=== PATIENT | female | born 1995 | race Two or more races ===

== ENCOUNTER 2020-12-09 12:35 | Inpatient (IN) | payer OTHER, SELFPAY ==
[2020-12-09 12:58] VITALS: BP 141/87; PULSE 120; RESP 20; TEMP 36.9; O2SAT 98; BMI 68.7
--- NOTE | 2020-12-09 13:31 | ED_ITS ---
HPI - Nausea/Vomiting/Diarrhea General Chief complaint: Nausea/Vomiting/Diarrhea Stated complaint: N/V,COUGH Time Seen by Provider: 12/09/20 13:31 History of Present Illness HPI Narrative: Patient complains of nausea and vomiting which started several days ago and is getting worse, she also feels weak No fever no chills no chest pain no shortness of breath no abdominal pain no diarrhea Patient is diabetic and has had DKA in the past Related Data Allergies Allergy/AdvReac Type Severity Reaction Status Date / Time bupropion [From Wellbutrin] Allergy Abdominal Verified 12/09/20 13:05 Pain [place] And Derivatives Allergy Itching Verified 12/09/20 13:05 lactose Allergy Nausea Verified 12/09/20 13:05 Review of Systems Review of Systems: Positive for nausea vomiting and weakness negatives are no fever no chills no chest pain no shortness of breath no abdominal pain no diarrhea no dysuria no burning with urination no flank pain no rash no confusion PMFSH Past Medical History PMFSH Narrative: Positive for diabetes and psychiatric disease Source: nursing notes reviewed Medical History (Updated 12/09/20 @ 13:03 by Musa Sandra) ADHD Anxiety Asthma Bipolar disorder Depression Diabetes mellitus type 1 PTSD (post-traumatic stress disorder) Social History Social History Alcohol intake: current Alcohol intake frequency: holidays/special occasions only Smoking Status: Never smoker Use of substances other than those prescribed or required for medical reasons: Yes Substance Use Type: Marijuana Substance Use Frequency: Daily Last Used Substance: Just Prior to Admission Advance Directives: Yes Advance Directives Information Provided: Yes Advance Directives on File: No Physical Exam Vital Signs: Vital Signs: Last Vital Signs Temp 98.1 F 12/09/20 19:11 Pulse 100 12/09/20 19:11 Resp 18 12/09/20 19:11 BP 138/95 H 12/09/20 19:11 Pulse Ox 100 12/09/20 19:11 Body Mass Index 68.7 General appearance is uncomfortable no acute distress and O x3 cooperative The head is normocephalic atraumatic The pharynx mucous membranes are dry Eyes anicteric no pallor The neck is supple The chest is clear to auscultation bilaterally with full symmetric breath sounds Heart rate and rhythm regular no murmur Abdomen is soft and nontender with no rebound no guarding Extremities no edema Skin no rash Neuro cranial nerves 2-12 intact as tested, motor is 5 /5 x 4, cerebellar exam was normal, verbal interaction was normal Course Course Course Narrative: Patient continued feeling nauseous and vomiting despite 2 doses of Zofran, she received 2 L of fluid and was given Reglan with good results and felt much better and was no longer vomiting and was easily able to tolerate p.o. and drink lots of fluids Labs showed possible DKA with bicarb 11, anion gap 25 and glucose 223 These labs were repeated and were worse with repeat sodium of 133 repeat bicarb of 6 repeat anion gap now 29 and glucose 287 and acetone increased from small to moderate Case was signed out to pa reschler at 930 pm to re-evaluate patient pending administration of another L of D5 NS, venous blood gas pending and she will re- evaluate and dispo patient pending treatment MDM - Nausea/Vomiting/Diarrhea Lab Data Attestation: I reviewed the patient's lab results. Result diagrams: 12/09/20 13:49 12/09/20 20:14 Labs: Lab Results 12/09/20 12/09/20 12/09/20 Range/Units 13:49 16:33 16:33 WBC 9.3 (4.8-10.8) X10*3/uL RBC 5.26 (4.20-5.50) X10*6/uL Hgb 16.3 H (12.0-16.0) g/dl Hct 49.1 H (37-47) % MCV 93.3 (80-98) fL MCH 31.0 (27.0-33.0) pg MCHC 33.2 (31.0-35.0) g/dl RDW 12.1 (11.0-16.0) % Plt Count 295 (160-400) X10*3/uL MPV 10.2 (9.4-12.3) fL Immature Gran % (Auto) 0.2 (0.0-0.4) % Neut % (Auto) 86.2 H (45-73) % Lymph % (Auto) 9.2 L (20-40) % [place] % (Auto) 4.0 (2-11) % Eos % (Auto) 0.0 (0-4) % Baso % (Auto) 0.4 (0-2) % Lymph # (Auto) 0.9 L (1.2-4.9) X10*3/uL [place] # (Auto) 0.4 (0.1-1.2) X10*3/uL Eos # (Auto) 0.0 (0.0-0.4) X10*3/uL Baso # (Auto) 0.0 (0.0-0.2) X10*3/uL Abs Immat Gran (auto) 0.02 (0.00-0.03) X10*3/uL Absolute Neuts (auto) 8.0 (2.0-8.3) X10*3/uL Absolute Nucleated RBC 0.000 (0.0-0.012) X10*3/uL Nucleated RBC % (auto) 0.0 (0.0-0.2) /100WBC Sodium 137 (135-145) mmol/L Potassium 4.2 (3.3-5.1) mmol/L Chloride 105 (96-108) mmol/L Carbon Dioxide 11 L (22-29) mmol/L Anion Gap 25 H (12-20) BUN 12 (9-16) mg/dL Creatinine 1.10 (0.5-1.4) mg/dL Estim Creat Clear Calc 148.5 Estimated GFR > 60 Random Glucose 223 H (60-115) mg/dL Calcium 9.0 9.2 (8.4-10.2) mg/dL Phosphorus 3.1 (2.7-4.5) mg/dL Magnesium 2.1 (1.6-2.6) mg/dL Total Bilirubin 0.3 0.3 (0.0-1.0) mg/dL Direct Bilirubin < 0.2 (0.0-0.5) mg/dL AST 32 H 33 H (5-31) U/L ALT 42 H 40 H (0-31) U/L Alkaline Phosphatase 84 83 (39-117) U/L Total Protein 8.0 7.9 (6.5-8.0) g/dL Albumin 4.8 4.7 (3.5-5.0) g/dL Lipase Beta HCG, Quant mIU/mL Urine Color Urine Appearance Urine pH (5.0-8.0) Ur Specific [place] (1.005-1.025) Urine Protein (NEG-TRACE) MG/DL Urine Glucose (UA) (NEG) MG/DL Urine Ketones (NEG) MG/DL Urine Blood (NEG) Urine Nitrite (NEG) Ur Leukocyte Esterase (NEG) Urine RBC (0) /HPF Urine WBC (0-4) /HPF Ur Squamous Epith Cells /LPF Urine Bacteria /LPF Urine Test (NEGATIVE) Acetone, Qual Small H (Negative) 12/09/20 12/09/20 12/09/20 Range/Units 16:33 16:33 16:33 WBC (4.8-10.8) X10*3/uL RBC (4.20-5.50) X10*6/uL Hgb (12.0-16.0) g/dl Hct (37-47) % MCV (80-98) fL MCH (27.0-33.0) pg MCHC (31.0-35.0) g/dl RDW (11.0-16.0) % Plt Count (160-400) X10*3/uL MPV (9.4-12.3) fL Immature Gran % (Auto) (0.0-0.4) % Neut % (Auto) (45-73) % Lymph % (Auto) (20-40) % [place] % (Auto) (2-11) % Eos % (Auto) (0-4) % Baso % (Auto) (0-2) % Lymph # (Auto) (1.2-4.9) X10*3/uL [place] # (Auto) (0.1-1.2) X10*3/uL Eos # (Auto) (0.0-0.4) X10*3/uL Baso # (Auto) (0.0-0.2) X10*3/uL Abs Immat Gran (auto) (0.00-0.03) X10*3/uL Absolute Neuts (auto) (2.0-8.3) X10*3/uL Absolute Nucleated RBC (0.0-0.012) X10*3/uL Nucleated RBC % (auto) (0.0-0.2) /100WBC Sodium Cancelled (135-145) mmol/L Potassium Cancelled (3.3-5.1) mmol/L Chloride Cancelled (96-108) mmol/L Carbon Dioxide Cancelled (22-29) mmol/L Anion Gap Cancelled (12-20) BUN Cancelled (9-16) mg/dL Creatinine Cancelled (0.5-1.4) mg/dL Estim Creat Clear Calc Cancelled Estimated GFR Cancelled Random Glucose Cancelled (60-115) mg/dL Calcium Cancelled (8.4-10.2) mg/dL Phosphorus (2.7-4.5) mg/dL Magnesium (1.6-2.6) mg/dL Total Bilirubin Cancelled (0.0-1.0) mg/dL Direct Bilirubin Cancelled (0.0-0.5) mg/dL AST Cancelled (5-31) U/L ALT Cancelled (0-31) U/L Alkaline Phosphatase Cancelled (39-117) U/L Total Protein Cancelled (6.5-8.0) g/dL Albumin Cancelled (3.5-5.0) g/dL Lipase Cancelled Cancelled Beta HCG, Quant < 2 mIU/mL Urine Color Urine Appearance Urine pH (5.0-8.0) Ur Specific [place] (1.005-1.025) Urine Protein (NEG-TRACE) MG/DL Urine Glucose (UA) (NEG) MG/DL Urine Ketones (NEG) MG/DL Urine Blood (NEG) Urine Nitrite (NEG) Ur Leukocyte Esterase (NEG) Urine RBC (0) /HPF Urine WBC (0-4) /HPF Ur Squamous Epith Cells /LPF Urine Bacteria /LPF Urine Test (NEGATIVE) Acetone, Qual Cancelled (Negative) 12/09/20 12/09/20 12/09/20 Range/Units 19:17 19:17 20:14 WBC (4.8-10.8) X10*3/uL RBC (4.20-5.50) X10*6/uL Hgb (12.0-16.0) g/dl Hct (37-47) % MCV (80-98) fL MCH (27.0-33.0) pg MCHC (31.0-35.0) g/dl RDW (11.0-16.0) % Plt Count (160-400) X10*3/uL MPV (9.4-12.3) fL Immature Gran % (Auto) (0.0-0.4) % Neut % (Auto) (45-73) % Lymph % (Auto) (20-40) % [place] % (Auto) (2-11) % Eos % (Auto) (0-4) % Baso % (Auto) (0-2) % Lymph # (Auto) (1.2-4.9) X10*3/uL [place] # (Auto) (0.1-1.2) X10*3/uL Eos # (Auto) (0.0-0.4) X10*3/uL Baso # (Auto) (0.0-0.2) X10*3/uL Abs Immat Gran (auto) (0.00-0.03) X10*3/uL Absolute Neuts (auto) (2.0-8.3) X10*3/uL Absolute Nucleated RBC (0.0-0.012) X10*3/uL Nucleated RBC % (auto) (0.0-0.2) /100WBC Sodium 133 L (135-145) mmol/L Potassium 4.8 (3.3-5.1) mmol/L Chloride 103 (96-108) mmol/L Carbon Dioxide 6 L* D (22-29) mmol/L Anion Gap 29 H (12-20) BUN 12 (9-16) mg/dL Creatinine 1.11 (0.5-1.4) mg/dL Estim Creat Clear Calc 147.1 Estimated GFR 60 Random Glucose 287 H (60-115) mg/dL Calcium 8.7 (8.4-10.2) mg/dL Phosphorus (2.7-4.5) mg/dL Magnesium (1.6-2.6) mg/dL Total Bilirubin (0.0-1.0) mg/dL Direct Bilirubin (0.0-0.5) mg/dL AST (5-31) U/L ALT (0-31) U/L Alkaline Phosphatase (39-117) U/L Total Protein (6.5-8.0) g/dL Albumin (3.5-5.0) g/dL Lipase Beta HCG, Quant mIU/mL Urine Color YELLOW Urine Appearance CLEAR Urine pH 5.5 (5.0-8.0) Ur Specific [place] >= 1.030 H (1.005-1.025) Urine Protein 2+ H (NEG-TRACE) MG/DL Urine Glucose (UA) 250 H (NEG) MG/DL Urine Ketones >=80 (NEG) MG/DL Urine Blood TRACE (NEG) Urine Nitrite NEG (NEG) Ur Leukocyte Esterase NEG (NEG) Urine RBC 0 (0) /HPF Urine WBC 0 (0-4) /HPF Ur Squamous Epith Cells NONE /LPF Urine Bacteria TRACE /LPF Urine Test NEGATIVE (NEGATIVE) Acetone, Qual Moderate H (Negative)
[2020-12-09] MEDS: ondansetron HCL 4 MG/2 ML VIAL IVPUSH ×2 (13:54→16:32)
[2020-12-09] MEDS: 0.9 % Sodium Chloride 1,000 ML 999 ML IVCONT ×2 (13:54→20:18)
[2020-12-09 13:55] LABS: MANUAL DIFF FLAG NO
[2020-12-09 14:02] LABS: Basophils Percent Auto 0.4 % (0-2); Hematocrit 49.1 % (37-47); Hemoglobin 16.3 g/dl (12.0-16.0); Imm Gran Abs Auto 0.02 X10*3/uL (0.00-0.03); Imm Gran Pct Auto 0.2 % (0.0-0.4); Lymphocytes Absolute Auto 0.9 X10*3/uL (1.2-4.9); Lymphocytes Percent Auto 9.2 % (20-40); Mean Corpuscular HGB Conc 33.2 g/dl (31.0-35.0); Mean Corpuscular Volume 93.3 fL (80-98); Mean Platelet Volume 10.2 fL (9.4-12.3); Monocytes Absolute Auto 0.4 X10*3/uL (0.1-1.2); Neutrophils Percent Auto 86.2 % (45-73); Platelet Count 295 X10*3/uL (160-400); Red Blood Count 5.26 X10*6/uL (4.20-5.50); Red Cell Distribution Width 12.1 % (11.0-16.0); White Blood Count 9.3 X10*3/uL (4.8-10.8)
[2020-12-09 15:31] VITALS: BP 128/61; PULSE 92; RESP 18; TEMP 37.3; O2SAT 100
[2020-12-09 16:09] VITALS: BP 142/86; PULSE 100; RESP 18; TEMP 37.2; O2SAT 99
--- NOTE | 2020-12-09 16:51 | PC.NURSE ---
pt continues to complain of nausea, given medication further per emar, repeat draw on hemolyzed specs. wctm.
[2020-12-09] MEDS: diphenhydrAMINE HCL 50 MG/ML VIAL 25 MG IVPUSH (17:15)
[2020-12-09] MEDS: Metoclopramide HCl 10 MG/2 ML VIAL IVPUSH ×2 (17:15→22:43)
--- NOTE | 2020-12-09 17:17 | PC.NURSE ---
MEDICATED FURTHER PER EMAR FOR NAUSEA. PT SEEN DRINKING FLUIDS RAPIDLY W THIS RN IN ROOM, EDUCATED ABOUT DRINKING FLUIDS QUICKLY WHEN VOMITING AND FEELING NAUSEOUS.
[2020-12-09 17:31] LABS: HCG Quantitative < 2 mIU/mL
[2020-12-09 17:39] LABS: Alanine Aminotransferase 40 U/L (0-31); Albumin Level 4.7 g/dL (3.5-5.0); Alkaline Phosphatase 83 U/L (39-117); Aspartate Amino Transferase 33 U/L (5-31); Bilirubin Direct < 0.2 mg/dL (0.0-0.5); Bilirubin Total 0.3 mg/dL (0.0-1.0); Calcium 9.2 mg/dL (8.4-10.2); Total Protein 7.9 g/dL (6.5-8.0)
[2020-12-09 17:40] LABS: Alanine Aminotransferase 42 U/L (0-31); Albumin Level 4.8 g/dL (3.5-5.0); Alkaline Phosphatase 84 U/L (39-117); Anion Gap 25 (12-20); Aspartate Amino Transferase 32 U/L (5-31); Bilirubin Total 0.3 mg/dL (0.0-1.0); Blood Urea Nitrogen 12 mg/dL (9-16); Carbon Dioxide 11 mmol/L (22-29); Chloride 105 mmol/L (96-108); Creatinine Clr Calc Pharmacy 148.5; Estimated Glomerular Filt Rate > 60; Glucose Random 223 mg/dL (60-115); Magnesium 2.1 mg/dL (1.6-2.6); Phosphorus 3.1 mg/dL (2.7-4.5); Potassium 4.2 mmol/L (3.3-5.1); Sodium 137 mmol/L (135-145)
[2020-12-09 18:05] LABS: Acetone, serum QL Small (Negative)
[2020-12-09 19:11] VITALS: BP 138/95; PULSE 100; RESP 18; TEMP 36.7; O2SAT 100
[2020-12-09 19:25] LABS: Glucose Urine UA 250 MG/DL (NEG); Leukocyte Esterase Urine NEG (NEG); Nitrite Urine NEG (NEG); PH 5.5 (5.0-8.0); Specific Gravity - Urine >= 1.030 (1.005-1.025); Urine Blood TRACE (NEG); Urine Ketones >=80 MG/DL (NEG); Urine Protein 2+ MG/DL (NEG-TRACE)
[2020-12-09 19:27] LABS: Appearance Urine CLEAR; Color Urine YELLOW
[2020-12-09 19:28] LABS: UPreg QC Valid YES; Urine Pregnancy NEGATIVE (NEGATIVE)
[2020-12-09 19:32] LABS: Bacteria Urine TRACE /LPF; RBC Urine 0 /HPF (0); WBC Urine 0 /HPF (0-4)
[2020-12-09 20:45] LABS: Acetone, serum QL Moderate (Negative)
[2020-12-09 21:05] LABS: Anion Gap 29 (12-20); Blood Urea Nitrogen 12 mg/dL (9-16); Calcium 8.7 mg/dL (8.4-10.2); Carbon Dioxide 6 mmol/L (22-29); Chloride 103 mmol/L (96-108); Creatinine Clr Calc Pharmacy 147.1; Estimated Glomerular Filt Rate 60; Glucose Random 287 mg/dL (60-115); Potassium 4.8 mmol/L (3.3-5.1); Sodium 133 mmol/L (135-145)
[2020-12-09] MEDS: Dextrose 5 % and 0.9 % NaCl 1,000 ML 999 ML IVCONT (21:33)
[2020-12-09 22:14] LABS: Lactic Acid 0.8 mmol/L (0.5-2.0)
[2020-12-09 22:14] LABS: Glucose, Whole Blood 284 mg/dL (60-115)
[2020-12-09] MEDS: Lactated Ringers 1,000 ML 999 ML IVCONT (22:48)
[2020-12-09 23:01] LABS: Base Excess VBG -19.2 mmol/L; HCO3 VBG 4 mmol/L; PCO2 VBG 10 mmHg; PO2 VBG 234 mmHg; pH VBG 7.23 (7.32-7.43)
[2020-12-09] MEDS: Insulin Regular, Human 100 UNIT/ML 3 ML VIAL IVPUSH (23:22)
[2020-12-09 23:47] LABS: Glucose, Whole Blood 234 mg/dL (60-115)
[2020-12-09 23:54] LABS: Anion Gap 26 (12-20); Blood Urea Nitrogen 10 mg/dL (9-16); Calcium 8.3 mg/dL (8.4-10.2); Carbon Dioxide < 5 mmol/L (22-29); Chloride 107 mmol/L (96-108); Creatinine Clr Calc Pharmacy 152.7; Estimated Glomerular Filt Rate > 60; Glucose Random 296 mg/dL (60-115); Potassium 4.9 mmol/L (3.3-5.1); Sodium 133 mmol/L (135-145)
--- NOTE | 2020-12-09 23:56 | PM.CCHP ---
History of Present Illness Date of Service: 12/09/20 Chief Complaint: nausea & vomiting Patient is a 25-year-old female with a past medical history type 1 diabetes, ADHD, bipolar with depression, PTSD and asthma who presented to the ER earlier today with complaints of nausea and vomiting for several days which is getting worse. Patient denies a fever chills chest pain shortness of breath abdominal pain and diarrhea. Patient states she took her 55 units of Lantus this morning but states she did not take it yesterday morning. Patient also admits to using marijuana daily, last use just prior to arrival to the ED. patient was given 2 doses of Zofran IV fluids and Reglan which helped her nausea. Labs showed DKA with bicarb of 11, anion gap of 25, small acetone and glucose of 223. Labs were repeated approximately 3 hours later, showing worsening acidosis with a bicarb of 6, anion gap of 29, acetone moderate, glucose stable in the 280s. VBG and lactic acid were then ordered; vbg 7.23/10/234/4/99/-19.2, lactic acid 0.8. Salicylates negative, acetaminophen negative, etoh negative. Upon my exam, patient disclosed she went to [facility] earlier this week for ?the same issue? but left AMA because she was sick of getting poked . Patient seemed a little slow with her speech, that coupled with her significant psych history, I queried her about SI or attempt today or history of SI or attempts in the past. She denies any suicide ideations or attempts in the past or current. She states she gets her Abilify injection every 3 months and her last injection was 2 days ago. 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 Patient will be admitted to the ICU for monitoring and management. Review of Systems Review of Systems: Yes all other systems are reviewed and are negative PMFSH Past Medical History Medical History ADHD Anxiety Asthma Bipolar disorder Depression Diabetes mellitus type 1 PTSD (post-traumatic stress disorder) Social History Social History Alcohol intake: current Alcohol intake frequency: holidays/special occasions only Smoking Status: Never smoker Use of substances other than those prescribed or required for medical reasons: Yes Substance Use Type: Marijuana Substance Use Frequency: Daily Last Used Substance: Just Prior to Admission Advance Directives: Yes Advance Directives Information Provided: Yes Advance Directives on File: No Meds Allergies Allergy/AdvReac Type Severity Reaction Status Date / Time bupropion [From Wellbutrin] Allergy Abdominal Verified 12/09/20 13:05 Pain [place] And Derivatives Allergy Itching Verified 12/09/20 13:05 lactose Allergy Nausea Verified 12/09/20 13:05 Active Medications: Current Medications Generic Name Dose Route Start Last Admin Trade Name Freq PRN Reason Stop Dose Admin Insulin Human Regular 100 unit in 100 mls @ 0 mls/hr 12/09/20 23:45 Myxredlin IVCONT .Q0M [facility] Protocol Per Protocol Dextrose/Sodium Chloride 1,000 mls @ 150 mls/hr 12/09/20 23:45 D5ns IVCONT .[id number] [facility] Pharmacy Consult 1 each 12/09/20 23:52 Consult Rx Perform Med Rec MISCELLANE ONCE PRN Consult order Sodium Chloride 3 ml 12/10/20 00:00 0.9 % Sodium Chloride Flush 3 Ml Syringe IVFLUSH QSHIFT [facility] Home Medications Medication Instructions Recorded Confirmed Last Taken Type albuterol sulfate [ProAir HFA] 2 puff PO Q4H PRN 12/10/20 12/10/20 12/09/20 History aripiprazole lauroxil [Arist[place]] 2.4 ml IM Q4W 12/10/20 12/10/20 12/09/20 History insulin lispro [Admelog SoloStar 12 unit SUBCUT QID 12/10/20 12/10/20 12/09/20 History U-100 Insulin] sertraline 1 tab PO DAILY 12/10/20 12/10/20 12/09/20 History sertraline 1 tab PO DAILY 12/10/20 12/10/20 12/09/20 History Physical Exam Vital Signs: Vital Signs: Last Vital Signs Temp 98.1 F 12/09/20 19:11 Pulse 100 12/09/20 19:11 Resp 18 12/09/20 19:11 BP 138/95 H 12/09/20 19:11 Pulse Ox 100 12/09/20 19:11 Body Mass Index 68.7 Const: General: cooperative, healthy appearing, comfortable, no acute distress and well developed Nutritional Appearance: overweight Orientation/consciousness: patient oriented x3 HENMT: Head: Yes normal to inspection, Yes No palpable skull fracture present, Yes normocephalic and Yes atraumatic Ears: hearing grossly normal bilaterally General nose exam: Normal external nose present Face and sinus: Yes normal facial exam Eyes: General: appearance normal, both eyes and all related structures Neck: Neck: Yes normal visual inspection, Yes full ROM and Yes supple Resp: Effort & Inspection: normal respiratory effort and able to speak in complete sentences Cardio: Rate: regular rate Rhythm: regular rhythm Neuro: General: patient oriented x3 Extrem: General: Yes normal to inspection, Yes full ROM and Yes no pedal edema Psych: Speech and movement: Clear speech present (slightly slowed) Affect: Blunted affect present Attitude: cooperative Thought process: Normal thought process present Thought content: Normal thought content present, suicidality and no homicidality Insight: Fair insight present (Psych) Judgement: Fair judgement present (Psych) Results Labs CBC and Chem 7: 12/09/20 13:49 12/09/20 22:53 Labs: Laboratory Results - last 24 hr 12/09/20 12/09/20 12/09/20 13:49 16:33 16:33 MCV 93.3 MCH 31.0 MCHC 33.2 RDW 12.1 Plt Count 295 MPV 10.2 Immature Gran % (Auto) 0.2 Neut % (Auto) 86.2 H Lymph % (Auto) 9.2 L [place] % (Auto) 4.0 Eos % (Auto) 0.0 Baso % (Auto) 0.4 Lymph # (Auto) 0.9 L [place] # (Auto) 0.4 Eos # (Auto) 0.0 Baso # (Auto) 0.0 Abs Immat Gran (auto) 0.02 Absolute Neuts (auto) 8.0 Absolute Nucleated RBC 0.000 Nucleated RBC % (auto) 0.0 VBG pH VBG pCO2 VBG pO2 VBG HCO3 VBG O2 Saturation VBG Base Excess Anion Gap 25 H Estim Creat Clear Calc 148.5 Estimated GFR > 60 POC Glucose Random Glucose 223 H Lactic Acid Calcium 9.0 9.2 Phosphorus 3.1 Magnesium 2.1 Total Bilirubin 0.3 0.3 Direct Bilirubin < 0.2 AST 32 H 33 H ALT 42 H 40 H Alkaline Phosphatase 84 83 Total Protein 8.0 7.9 Albumin 4.8 4.7 Lipase Beta HCG, Quant Urine Color Urine Appearance Urine pH Ur Specific [place] Urine Protein Urine Glucose (UA) Urine Ketones Urine Blood Urine Nitrite Ur Leukocyte Esterase Urine RBC Urine WBC Ur Squamous Epith Cells Urine Bacteria Urine Test Acetone, Qual Small H 12/09/20 12/09/20 12/09/20 16:33 16:33 16:33 MCV MCH MCHC RDW Plt Count MPV Immature Gran % (Auto) Neut % (Auto) Lymph % (Auto) [place] % (Auto) Eos % (Auto) Baso % (Auto) Lymph # (Auto) [place] # (Auto) Eos # (Auto) Baso # (Auto) Abs Immat Gran (auto) Absolute Neuts (auto) Absolute Nucleated RBC Nucleated RBC % (auto) VBG pH VBG pCO2 VBG pO2 VBG HCO3 VBG O2 Saturation VBG Base Excess Anion Gap Cancelled Estim Creat Clear Calc Cancelled Estimated GFR Cancelled POC Glucose Random Glucose Cancelled Lactic Acid Calcium Cancelled Phosphorus Magnesium Total Bilirubin Cancelled Direct Bilirubin Cancelled AST Cancelled ALT Cancelled Alkaline Phosphatase Cancelled Total Protein Cancelled Albumin Cancelled Lipase Cancelled Cancelled Beta HCG, Quant < 2 Urine Color Urine Appearance Urine pH Ur Specific [place] Urine Protein Urine Glucose (UA) Urine Ketones Urine Blood Urine Nitrite Ur Leukocyte Esterase Urine RBC Urine WBC Ur Squamous Epith Cells Urine Bacteria Urine Test Acetone, Qual Cancelled 12/09/20 12/09/20 12/09/20 19:17 19:17 20:14 MCV MCH MCHC RDW Plt Count MPV Immature Gran % (Auto) Neut % (Auto) Lymph % (Auto) [place] % (Auto) Eos % (Auto) Baso % (Auto) Lymph # (Auto) [place] # (Auto) Eos # (Auto) Baso # (Auto) Abs Immat Gran (auto) Absolute Neuts (auto) Absolute Nucleated RBC Nucleated RBC % (auto) VBG pH VBG pCO2 VBG pO2 VBG HCO3 VBG O2 Saturation VBG Base Excess Anion Gap 29 H Estim Creat Clear Calc 147.1 Estimated GFR 60 POC Glucose Random Glucose 287 H Lactic Acid Calcium 8.7 Phosphorus Magnesium Total Bilirubin Direct Bilirubin AST ALT Alkaline Phosphatase Total Protein Albumin Lipase Beta HCG, Quant Urine Color YELLOW Urine Appearance CLEAR Urine pH 5.5 Ur Specific [place] >= 1.030 H Urine Protein 2+ H Urine Glucose (UA) 250 H Urine Ketones >=80 Urine Blood TRACE Urine Nitrite NEG Ur Leukocyte Esterase NEG Urine RBC 0 Urine WBC 0 Ur Squamous Epith Cells NONE Urine Bacteria TRACE Urine Test NEGATIVE Acetone, Qual Moderate H 12/09/20 12/09/20 12/09/20 21:50 22:09 22:53 MCV MCH MCHC RDW Plt Count MPV Immature Gran % (Auto) Neut % (Auto) Lymph % (Auto) [place] % (Auto) Eos % (Auto) Baso % (Auto) Lymph # (Auto) [place] # (Auto) Eos # (Auto) Baso # (Auto) Abs Immat Gran (auto) Absolute Neuts (auto) Absolute Nucleated RBC Nucleated RBC % (auto) VBG pH 7.23 L VBG pCO2 10 VBG pO2 234 VBG HCO3 4 VBG O2 Saturation 99.0 VBG Base Excess -19.2 Anion Gap Estim Creat Clear Calc Estimated GFR POC Glucose 284 H Random Glucose Lactic Acid 0.8 Calcium Phosphorus Magnesium Total Bilirubin Direct Bilirubin AST ALT Alkaline Phosphatase Total Protein Albumin Lipase Beta HCG, Quant Urine Color Urine Appearance Urine pH Ur Specific [place] Urine Protein Urine Glucose (UA) Urine Ketones Urine Blood Urine Nitrite Ur Leukocyte Esterase Urine RBC Urine WBC Ur Squamous Epith Cells Urine Bacteria Urine Test Acetone, Qual 12/09/20 12/09/20 22:53 23:41 MCV MCH MCHC RDW Plt Count MPV Immature Gran % (Auto) Neut % (Auto) Lymph % (Auto) [place] % (Auto) Eos % (Auto) Baso % (Auto) Lymph # (Auto) [place] # (Auto) Eos # (Auto) Baso # (Auto) Abs Immat Gran (auto) Absolute Neuts (auto) Absolute Nucleated RBC Nucleated RBC % (auto) VBG pH VBG pCO2 VBG pO2 VBG HCO3 VBG O2 Saturation VBG Base Excess Anion Gap 26 H Estim Creat Clear Calc 152.7 Estimated GFR > 60 POC Glucose 234 H Random Glucose 296 H Lactic Acid Calcium 8.3 L Phosphorus Magnesium Total Bilirubin Direct Bilirubin AST ALT Alkaline Phosphatase Total Protein Albumin Lipase Beta HCG, Quant Urine Color Urine Appearance Urine pH Ur Specific [place] Urine Protein Urine Glucose (UA) Urine Ketones Urine Blood Urine Nitrite Ur Leukocyte Esterase Urine RBC Urine WBC Ur Squamous Epith Cells Urine Bacteria Urine Test Acetone, Qual Assessment and Plan (1) DKA (diabetic ketoacidoses): Qualifiers: Diabetes mellitus complication detail: without coma Diabetes mellitus type: type 1 Qualified Code(s): E10.10 - Type 1 diabetes mellitus with ketoacidosis without coma Status: Acute Starting patient on insulin drip, D5 NS drip, will monitor POC Q1H, monitor metabolic panel Q2H.
[2020-12-10] VITALS (23 sets, daily range): BP systolic 107–143; BP diastolic 60–83; PULSE 79–110; RESP 10–26; TEMP 36.7–37.4; O2SAT 95–99; BMI 28.8; BMI 29.0
[2020-12-10 00:21] LABS: Glucose, Whole Blood 214 mg/dL (60-115)
[2020-12-10] MEDS: Dextrose 5 % and 0.9 % NaCl 1,000 ML 150 ML IVCONT (00:26)
[2020-12-10] MEDS: Insulin Regular/NS 100 UNIT/100 ML PLAST..BAG IVCONT (00:30)
--- NOTE | 2020-12-10 00:31 | PC.NURSE ---
insulin drip started @ 3u/h @ 0031 w/ d5ns @ 150ml/h as well per ICU PA pt given sandwich & diet nicolette
[2020-12-10 00:34] LABS: COVID-19 Test Negative (Negative); IDNOW Serial# 9DD0AD1C
[2020-12-10 00:34] LABS: Ethanol < 10 mg/dL
[2020-12-10 01:02] LABS: Acetaminophen LAB < 1 mcg/mL (<30); Salicylate < 5.0 mg/dL (15-30)
[2020-12-10 01:11] LABS: Glucose, Whole Blood 226 mg/dL (60-115)
[2020-12-10 01:25] LABS: Base Excess VBG -15.3 mmol/L; HCO3 VBG 9 mmol/L; PCO2 VBG 21 mmHg; PO2 VBG 56 mmHg; pH VBG 7.25 (7.32-7.43)
[2020-12-10 01:48] LABS: Anion Gap 20 (12-20); Blood Urea Nitrogen 9 mg/dL (9-16); Calcium 8.3 mg/dL (8.4-10.2); Carbon Dioxide 11 mmol/L (22-29); Chloride 107 mmol/L (96-108); Estimated Glomerular Filt Rate > 60; Glucose Random 254 mg/dL (60-115); Potassium 3.9 mmol/L (3.3-5.1); Sodium 134 mmol/L (135-145)
[2020-12-10] MEDS: Acetaminophen 325 MG TABLET 650 MG PO ×2 (01:53→08:05)
[2020-12-10 02:01] LABS: Glucose, Whole Blood 235 mg/dL (60-115)
[2020-12-10] MEDS: KCl 20 mEq in 5% Dex/0.45% Sod 20 MEQ/1,000 ML IV.SOLN 150 MEQ IVCONT (02:30)
[2020-12-10 03:08] LABS: Glucose, Whole Blood 213 mg/dL (60-115)
[2020-12-10 04:10] LABS: Glucose, Whole Blood 219 mg/dL (60-115)
[2020-12-10 04:26] LABS: MANUAL DIFF FLAG NO
[2020-12-10 04:36] LABS: Basophils Percent Auto 0.4 % (0-2); Hematocrit 37.8 % (37-47); Hemoglobin 12.8 g/dl (12.0-16.0); Imm Gran Abs Auto 0.01 X10*3/uL (0.00-0.03); Imm Gran Pct Auto 0.1 % (0.0-0.4); Lymphocytes Percent Auto 25.4 % (20-40); Mean Corpuscular HGB Conc 33.9 g/dl (31.0-35.0); Mean Corpuscular Hemoglobin 31.1 pg (27.0-33.0); Mean Corpuscular Volume 91.7 fL (80-98); Mean Platelet Volume 10.4 fL (9.4-12.3); Monocytes Absolute Auto 0.8 X10*3/uL (0.1-1.2); Neutrophils Absolute Auto 4.9 X10*3/uL (2.0-8.3); Neutrophils Percent Auto 64.1 % (45-73); Platelet Count 238 X10*3/uL (160-400); Red Blood Count 4.12 X10*6/uL (4.20-5.50); White Blood Count 7.7 X10*3/uL (4.8-10.8)
[2020-12-10 04:55] LABS: Anion Gap 13 (12-20); Blood Urea Nitrogen 8 mg/dL (9-16); Carbon Dioxide 14 mmol/L (22-29); Chloride 110 mmol/L (96-108); Creatinine Clr Calc Pharmacy 114.8; Estimated Glomerular Filt Rate > 60; Glucose Random 236 mg/dL (60-115); Magnesium 1.9 mg/dL (1.6-2.6); Phosphorus 2.4 mg/dL (2.7-4.5); Potassium 3.8 mmol/L (3.3-5.1); Sodium 133 mmol/L (135-145)
[2020-12-10 05:02] LABS: Glucose, Whole Blood 201 mg/dL (60-115)
[2020-12-10 06:00] LABS: Glucose, Whole Blood 196 mg/dL (60-115)
[2020-12-10 07:07] LABS: Glucose, Whole Blood 206 mg/dL (60-115)
[2020-12-10 07:35] LABS: MANUAL DIFF FLAG NO
[2020-12-10 07:41] LABS: Basophils Percent Auto 0.3 % (0-2); Eosinophils Percent Auto 0.3 % (0-4); Hemoglobin 13.2 g/dl (12.0-16.0); Imm Gran Abs Auto 0.02 X10*3/uL (0.00-0.03); Imm Gran Pct Auto 0.3 % (0.0-0.4); Lymphocytes Absolute Auto 1.8 X10*3/uL (1.2-4.9); Lymphocytes Percent Auto 27.6 % (20-40); Mean Corpuscular HGB Conc 33.8 g/dl (31.0-35.0); Mean Corpuscular Hemoglobin 31.1 pg (27.0-33.0); Mean Corpuscular Volume 91.8 fL (80-98); Mean Platelet Volume 10.1 fL (9.4-12.3); Monocytes Absolute Auto 0.7 X10*3/uL (0.1-1.2); Monocytes Percent Auto 11.2 % (2-11); Neutrophils Absolute Auto 3.9 X10*3/uL (2.0-8.3); Neutrophils Percent Auto 60.3 % (45-73); Platelet Count 233 X10*3/uL (160-400); Red Blood Count 4.25 X10*6/uL (4.20-5.50); Red Cell Distribution Width 12.1 % (11.0-16.0); White Blood Count 6.5 X10*3/uL (4.8-10.8)
[2020-12-10 07:42] LABS: pH VBG 7.35 (7.32-7.43)
[2020-12-10 07:43] LABS: HCO3 VBG 14 mmol/L; PCO2 VBG 25 mmHg; PO2 VBG 159 mmHg
[2020-12-10 08:02] LABS: Anion Gap 11 (12-20); Blood Urea Nitrogen 8 mg/dL (9-16); Calcium 8.3 mg/dL (8.4-10.2); Carbon Dioxide 17 mmol/L (22-29); Chloride 111 mmol/L (96-108); Creatinine Clr Calc Pharmacy 121.9; Estimated Glomerular Filt Rate > 60; Glucose Random 197 mg/dL (60-115); Magnesium 1.9 mg/dL (1.6-2.6); Phosphorus 2.1 mg/dL (2.7-4.5); Potassium 3.7 mmol/L (3.3-5.1); Sodium 135 mmol/L (135-145)
[2020-12-10 08:14] LABS: Glucose, Whole Blood 160 mg/dL (60-115)
[2020-12-10] MEDS: 0.9 % Sodium Chloride Flush 3 ML SYRINGE IVFLUSH (08:27)
[2020-12-10 09:01] LABS: Glucose, Whole Blood 219 mg/dL (60-115)
--- NOTE | 2020-12-10 09:51 | MHC.CM.PN ---
Met with pt to discuss d/c planning Pt resides with parent, cousin and boyfriend. She states she has a working glucometer and all diabetic medications/supplies. She follows a psychiatrist through [facility] and has community CM services through [facility][NOTE 3]. [facility]NOTE 3] provides medical transportation and she relies on public transportation or family / friends for other transportation needs. Her PCP is Maria R Chong whom she states she sees regularly. At this time, no additional services are anticipated and pt will d/c to home with above - transportation to be arranged by pt.
[2020-12-10 10:12] LABS: Glucose, Whole Blood 260 mg/dL (60-115)
[2020-12-10 11:04] LABS: PCO2 VBG 24 mmHg; PO2 VBG 148 mmHg; pH VBG 7.38 (7.32-7.43)
[2020-12-10 11:05] LABS: Base Excess VBG -8.1 mmol/L; HCO3 VBG 14 mmol/L
[2020-12-10 11:21] LABS: Anion Gap 11 (12-20); Blood Urea Nitrogen 9 mg/dL (9-16); Calcium 8.7 mg/dL (8.4-10.2); Carbon Dioxide 19 mmol/L (22-29); Chloride 110 mmol/L (96-108); Creatinine Clr Calc Pharmacy 119.4; Estimated Glomerular Filt Rate > 60; Glucose Random 253 mg/dL (60-115); Potassium 3.9 mmol/L (3.3-5.1); Sodium 136 mmol/L (135-145)
[2020-12-10 11:39] LABS: Glucose, Whole Blood 256 mg/dL (60-115)
[2020-12-10 12:27] LABS: Glucose, Whole Blood 206 mg/dL (60-115)
--- NOTE | 2020-12-10 14:13 | PM.CCPN ---
Subjective Subjective Date of Service: 12/10/20 Interval History: 25-year-old female bipolar as well as insulin-requiring type 1 diabetes who presented with diabetic ketoacidosis which continues to repair on IV insulin drip as well as the fluid replacement currently Ringer's lactate all precipitated by simply stopping her diabetic medication Physical Exam Vital Signs: Vital Signs: Last Vital Signs Temp 98.1 F 12/10/20 08:00 Pulse 98 12/10/20 14:00 Resp 26 H 12/10/20 14:00 BP 116/62 12/10/20 14:00 Pulse Ox 98 12/10/20 13:00 Body Mass Index 29.0 Const: Other: Awake alert and nonfocal neurologically Skin intact with no wounds no cellulitis no acrocyanosis Chest clear and no adventitious sounds Cardiac exam with no neck vein distension and good bilateral carotid upstrokes and no gallops Abdomen benign with no organomegaly and good bowel sounds Objective Data Labs CBC & Chem 7: 12/10/20 07:28 12/10/20 10:49 Labs: Laboratory Results - last 24 hr 12/09/20 12/09/20 12/09/20 13:49 16:33 16:33 WBC RBC Hgb Hct MCV MCH MCHC RDW Plt Count MPV Immature Gran % (Auto) Neut % (Auto) Lymph % (Auto) [place] % (Auto) Eos % (Auto) Baso % (Auto) Lymph # (Auto) [place] # (Auto) Eos # (Auto) Baso # (Auto) Abs Immat Gran (auto) Absolute Neuts (auto) Absolute Nucleated RBC Nucleated RBC % (auto) VBG pH VBG pCO2 VBG pO2 VBG HCO3 VBG O2 Saturation VBG Base Excess Sodium 137 Potassium 4.2 Chloride 105 Carbon Dioxide 11 L Anion Gap 25 H BUN 12 Creatinine 1.10 Estim Creat Clear Calc 148.5 Estimated GFR > 60 POC Glucose Random Glucose 223 H Lactic Acid Calcium 9.0 9.2 Phosphorus 3.1 Magnesium 2.1 Total Bilirubin 0.3 0.3 Direct Bilirubin < 0.2 AST 32 H 33 H ALT 42 H 40 H Alkaline Phosphatase 84 83 Total Protein 8.0 7.9 Albumin 4.8 4.7 Lipase Beta HCG, Quant Urine Color Urine Appearance Urine pH Ur Specific [place] Urine Protein Urine Glucose (UA) Urine Ketones Urine Blood Urine Nitrite Ur Leukocyte Esterase Urine RBC Urine WBC Ur Squamous Epith Cells Urine Bacteria Urine Test Salicylates Acetaminophen Ethyl Alcohol < 10 Acetone, Qual Small H COVID-19 (JASON) COVID-19 [email or web address] 12/09/20 12/09/20 12/09/20 16:33 16:33 16:33 WBC RBC Hgb Hct MCV MCH MCHC RDW Plt Count MPV Immature Gran % (Auto) Neut % (Auto) Lymph % (Auto) [place] % (Auto) Eos % (Auto) Baso % (Auto) Lymph # (Auto) [place] # (Auto) Eos # (Auto) Baso # (Auto) Abs Immat Gran (auto) Absolute Neuts (auto) Absolute Nucleated RBC Nucleated RBC % (auto) VBG pH VBG pCO2 VBG pO2 VBG HCO3 VBG O2 Saturation VBG Base Excess Sodium Cancelled Potassium Cancelled Chloride Cancelled Carbon Dioxide Cancelled Anion Gap Cancelled BUN Cancelled Creatinine Cancelled Estim Creat Clear Calc Cancelled Estimated GFR Cancelled POC Glucose Random Glucose Cancelled Lactic Acid Calcium Cancelled Phosphorus Magnesium Total Bilirubin Cancelled Direct Bilirubin Cancelled AST Cancelled ALT Cancelled Alkaline Phosphatase Cancelled Total Protein Cancelled Albumin Cancelled Lipase Cancelled Cancelled Beta HCG, Quant < 2 Urine Color Urine Appearance Urine pH Ur Specific [place] Urine Protein Urine Glucose (UA) Urine Ketones Urine Blood Urine Nitrite Ur Leukocyte Esterase Urine RBC Urine WBC Ur Squamous Epith Cells Urine Bacteria Urine Test Salicylates Acetaminophen Ethyl Alcohol Acetone, Qual Cancelled COVID-19 (JASON) COVID-19 [email or web address] 12/09/20 12/09/20 12/09/20 19:17 19:17 20:14 WBC RBC Hgb Hct MCV MCH MCHC RDW Plt Count MPV Immature Gran % (Auto) Neut % (Auto) Lymph % (Auto) [place] % (Auto) Eos % (Auto) Baso % (Auto) Lymph # (Auto) [place] # (Auto) Eos # (Auto) Baso # (Auto) Abs Immat Gran (auto) Absolute Neuts (auto) Absolute Nucleated RBC Nucleated RBC % (auto) VBG pH VBG pCO2 VBG pO2 VBG HCO3 VBG O2 Saturation VBG Base Excess Sodium 133 L Potassium 4.8 Chloride 103 Carbon Dioxide 6 L* D Anion Gap 29 H BUN 12 Creatinine 1.11 Estim Creat Clear Calc 147.1 Estimated GFR 60 POC Glucose Random Glucose 287 H Lactic Acid Calcium 8.7 Phosphorus Magnesium Total Bilirubin Direct Bilirubin AST ALT Alkaline Phosphatase Total Protein Albumin Lipase Beta HCG, Quant Urine Color YELLOW Urine Appearance CLEAR Urine pH 5.5 Ur Specific [place] >= 1.030 H Urine Protein 2+ H Urine Glucose (UA) 250 H Urine Ketones >=80 Urine Blood TRACE Urine Nitrite NEG Ur Leukocyte Esterase NEG Urine RBC 0 Urine WBC 0 Ur Squamous Epith Cells NONE Urine Bacteria TRACE Urine Test NEGATIVE Salicylates Acetaminophen Ethyl Alcohol Acetone, Qual Moderate H COVID-19 (JASON) COVID-19 [email or web address] 12/09/20 12/09/20 12/09/20 21:50 22:09 22:53 WBC RBC Hgb Hct MCV MCH MCHC RDW Plt Count MPV Immature Gran % (Auto) Neut % (Auto) Lymph % (Auto) [place] % (Auto) Eos % (Auto) Baso % (Auto) Lymph # (Auto) [place] # (Auto) Eos # (Auto) Baso # (Auto) Abs Immat Gran (auto) Absolute Neuts (auto) Absolute Nucleated RBC Nucleated RBC % (auto) VBG pH 7.23 L VBG pCO2 10 VBG pO2 234 VBG HCO3 4 VBG O2 Saturation 99.0 VBG Base Excess -19.2 Sodium Potassium Chloride Carbon Dioxide Anion Gap BUN Creatinine Estim Creat Clear Calc Estimated GFR POC Glucose 284 H Random Glucose Lactic Acid 0.8 Calcium Phosphorus Magnesium Total Bilirubin Direct Bilirubin AST ALT Alkaline Phosphatase Total Protein Albumin Lipase Beta HCG, Quant Urine Color Urine Appearance Urine pH Ur Specific [place] Urine Protein Urine Glucose (UA) Urine Ketones Urine Blood Urine Nitrite Ur Leukocyte Esterase Urine RBC Urine WBC Ur Squamous Epith Cells Urine Bacteria Urine Test Salicylates Acetaminophen Ethyl Alcohol Acetone, Qual COVID-19 (JASON) COVID-19 [email or web address] 12/09/20 12/09/20 12/10/20 22:53 23:41 00:02 WBC RBC Hgb Hct MCV MCH MCHC RDW Plt Count MPV Immature Gran % (Auto) Neut % (Auto) Lymph % (Auto) [place] % (Auto) Eos % (Auto) Baso % (Auto) Lymph # (Auto) [place] # (Auto) Eos # (Auto) Baso # (Auto) Abs Immat Gran (auto) Absolute Neuts (auto) Absolute Nucleated RBC Nucleated RBC % (auto) VBG pH VBG pCO2 VBG pO2 VBG HCO3 VBG O2 Saturation VBG Base Excess Sodium 133 L Potassium 4.9 Chloride 107 Carbon Dioxide < 5 L* Anion Gap 26 H BUN 10 Creatinine 1.07 Estim Creat Clear Calc 152.7 Estimated GFR > 60 POC Glucose 234 H Random Glucose 296 H Lactic Acid Calcium 8.3 L Phosphorus Magnesium Total Bilirubin Direct Bilirubin AST ALT Alkaline Phosphatase Total Protein Albumin Lipase Beta HCG, Quant Urine Color Urine Appearance Urine pH Ur Specific [place] Urine Protein Urine Glucose (UA) Urine Ketones Urine Blood Urine Nitrite Ur Leukocyte Esterase Urine RBC Urine WBC Ur Squamous Epith Cells Urine Bacteria Urine Test Salicylates < 5.0 L Acetaminophen < 1 Ethyl Alcohol Acetone, Qual COVID-19 (JASON) Negative COVID-19 Clin Com See Note 12/10/20 12/10/20 12/10/20 00:16 01:07 01:16 WBC RBC Hgb Hct MCV MCH MCHC RDW Plt Count MPV Immature Gran % (Auto) Neut % (Auto) Lymph % (Auto) [place] % (Auto) Eos % (Auto) Baso % (Auto) Lymph # (Auto) [place] # (Auto) Eos # (Auto) Baso # (Auto) Abs Immat Gran (auto) Absolute Neuts (auto) Absolute Nucleated RBC Nucleated RBC % (auto) VBG pH VBG pCO2 VBG pO2 VBG HCO3 VBG O2 Saturation VBG Base Excess Sodium 134 L Potassium 3.9 D Chloride 107 Carbon Dioxide 11 L Anion Gap 20 BUN 9 Creatinine 0.94 Estim Creat Clear Calc 105.0 Estimated GFR > 60 POC Glucose 214 H 226 H Random Glucose 254 H Lactic Acid Calcium 8.3 L Phosphorus Magnesium Total Bilirubin Direct Bilirubin AST ALT Alkaline Phosphatase Total Protein Albumin Lipase Beta HCG, Quant Urine Color Urine Appearance Urine pH Ur Specific [place] Urine Protein Urine Glucose (UA) Urine Ketones Urine Blood Urine Nitrite Ur Leukocyte Esterase Urine RBC Urine WBC Ur Squamous Epith Cells Urine Bacteria Urine Test Salicylates Acetaminophen Ethyl Alcohol Acetone, Qual COVID-19 (JASON) COVID-19 Clin Com 12/10/20 12/10/20 12/10/20 01:16 01:57 03:04 WBC RBC Hgb Hct MCV MCH MCHC RDW Plt Count MPV Immature Gran % (Auto) Neut % (Auto) Lymph % (Auto) [place] % (Auto) Eos % (Auto) Baso % (Auto) Lymph # (Auto) [place] # (Auto) Eos # (Auto) Baso # (Auto) Abs Immat Gran (auto) Absolute Neuts (auto) Absolute Nucleated RBC Nucleated RBC % (auto) VBG pH 7.25 L VBG pCO2 21 VBG pO2 56 VBG HCO3 9 VBG O2 Saturation 85.0 VBG Base Excess -15.3 Sodium Potassium Chloride Carbon Dioxide Anion Gap BUN Creatinine Estim Creat Clear Calc Estimated GFR POC Glucose 235 H 213 H Random Glucose Lactic Acid Calcium Phosphorus Magnesium Total Bilirubin Direct Bilirubin AST ALT Alkaline Phosphatase Total Protein Albumin Lipase Beta HCG, Quant Urine Color Urine Appearance Urine pH Ur Specific [place] Urine Protein Urine Glucose (UA) Urine Ketones Urine Blood Urine Nitrite Ur Leukocyte Esterase Urine RBC Urine WBC Ur Squamous Epith Cells Urine Bacteria Urine Test Salicylates Acetaminophen Ethyl Alcohol Acetone, Qual COVID-19 (JASON) COVID-19 [email or web address] 12/10/20 12/10/20 12/10/20 04:06 04:11 04:11 WBC 7.7 RBC 4.12 L D Hgb 12.8 D Hct 37.8 D MCV 91.7 MCH 31.1 MCHC 33.9 RDW 12.0 Plt Count 238 MPV 10.4 Immature Gran % (Auto) 0.1 Neut % (Auto) 64.1 Lymph % (Auto) 25.4 [place] % (Auto) 10.0 Eos % (Auto) 0.0 Baso % (Auto) 0.4 Lymph # (Auto) 2.0 [place] # (Auto) 0.8 Eos # (Auto) 0.0 Baso # (Auto) 0.0 Abs Immat Gran (auto) 0.01 Absolute Neuts (auto) 4.9 Absolute Nucleated RBC 0.000 Nucleated RBC % (auto) 0.0 VBG pH VBG pCO2 VBG pO2 VBG HCO3 VBG O2 Saturation VBG Base Excess Sodium 133 L Potassium 3.8 Chloride 110 H Carbon Dioxide 14 L Anion Gap 13 BUN 8 L Creatinine 0.86 Estim Creat Clear Calc 114.8 Estimated GFR > 60 POC Glucose 219 H Random Glucose 236 H Lactic Acid Calcium 8.0 L Phosphorus 2.4 L Magnesium 1.9 Total Bilirubin Direct Bilirubin AST ALT Alkaline Phosphatase Total Protein Albumin Lipase Beta HCG, Quant Urine Color Urine Appearance Urine pH Ur Specific [place] Urine Protein Urine Glucose (UA) Urine Ketones Urine Blood Urine Nitrite Ur Leukocyte Esterase Urine RBC Urine WBC Ur Squamous Epith Cells Urine Bacteria Urine Test Salicylates Acetaminophen Ethyl Alcohol Acetone, Qual COVID-19 (JASON) COVID-19 [employer] [facility] 02/09/1912/10/20 12/10/20 04:58 05:56 07:01 WBC RBC Hgb Hct MCV MCH MCHC RDW Plt Count MPV Immature Gran % (Auto) Neut % (Auto) Lymph % (Auto) [place] % (Auto) Eos % (Auto) Baso % (Auto) Lymph # (Auto) [place] # (Auto) Eos # (Auto) Baso # (Auto) Abs Immat Gran (auto) Absolute Neuts (auto) Absolute Nucleated RBC Nucleated RBC % (auto) VBG pH VBG pCO2 VBG pO2 VBG HCO3 VBG O2 Saturation VBG Base Excess Sodium Potassium Chloride Carbon Dioxide Anion Gap BUN Creatinine Estim Creat Clear Calc Estimated GFR POC Glucose 201 H 196 H 206 H Random Glucose Lactic Acid Calcium Phosphorus Magnesium Total Bilirubin Direct Bilirubin AST ALT Alkaline Phosphatase Total Protein Albumin Lipase Beta HCG, Quant Urine Color Urine Appearance Urine pH Ur Specific [place] Urine Protein Urine Glucose (UA) Urine Ketones Urine Blood Urine Nitrite Ur Leukocyte Esterase Urine RBC Urine WBC Ur Squamous Epith Cells Urine Bacteria Urine Test Salicylates Acetaminophen Ethyl Alcohol Acetone, Qual COVID-19 (JASON) COVID-19 Clin Com 12/10/20 12/10/20 12/10/20 07:28 07:28 07:29 WBC 6.5 RBC 4.25 Hgb 13.2 Hct 39.0 MCV 91.8 MCH 31.1 MCHC 33.8 RDW 12.1 Plt Count 233 MPV 10.1 Immature Gran % (Auto) 0.3 Neut % (Auto) 60.3 Lymph % (Auto) 27.6 [place] % (Auto) 11.2 H Eos % (Auto) 0.3 Baso % (Auto) 0.3 Lymph # (Auto) 1.8 [place] # (Auto) 0.7 Eos # (Auto) 0.0 Baso # (Auto) 0.0 Abs Immat Gran (auto) 0.02 Absolute Neuts (auto) 3.9 Absolute Nucleated RBC 0.000 Nucleated RBC % (auto) 0.0 VBG pH 7.35 VBG pCO2 25 VBG pO2 159 VBG HCO3 14 VBG O2 Saturation 99.0 VBG Base Excess -9.0 Sodium 135 Potassium 3.7 Chloride 111 H Carbon Dioxide 17 L Anion Gap 11 L BUN 8 L Creatinine 0.81 Estim Creat Clear Calc 121.9 Estimated GFR > 60 POC Glucose Random Glucose 197 H Lactic Acid Calcium 8.3 L Phosphorus 2.1 L Magnesium 1.9 Total Bilirubin Direct Bilirubin AST ALT Alkaline Phosphatase Total Protein Albumin Lipase Beta HCG, Quant Urine Color Urine Appearance Urine pH Ur Specific [place] Urine Protein Urine Glucose (UA) Urine Ketones Urine Blood Urine Nitrite Ur Leukocyte Esterase Urine RBC Urine WBC Ur Squamous Epith Cells Urine Bacteria Urine Test Salicylates Acetaminophen Ethyl Alcohol Acetone, Qual COVID-19 (JASON) COVID-19 [email or web address] 12/10/20 12/10/20 12/10/20 08:10 08:57 10:01 WBC RBC Hgb Hct MCV MCH MCHC RDW Plt Count MPV Immature Gran % (Auto) Neut % (Auto) Lymph % (Auto) [place] % (Auto) Eos % (Auto) Baso % (Auto) Lymph # (Auto) [place] # (Auto) Eos # (Auto) Baso # (Auto) Abs Immat Gran (auto) Absolute Neuts (auto) Absolute Nucleated RBC Nucleated RBC % (auto) VBG pH VBG pCO2 VBG pO2 VBG HCO3 VBG O2 Saturation VBG Base Excess Sodium Potassium Chloride Carbon Dioxide Anion Gap BUN Creatinine Estim Creat Clear Calc Estimated GFR POC Glucose 160 H 219 H 260 H Random Glucose Lactic Acid Calcium Phosphorus Magnesium Total Bilirubin Direct Bilirubin AST ALT Alkaline Phosphatase Total Protein Albumin Lipase Beta HCG, Quant Urine Color Urine Appearance Urine pH Ur Specific [place] Urine Protein Urine Glucose (UA) Urine Ketones Urine Blood Urine Nitrite Ur Leukocyte Esterase Urine RBC Urine WBC Ur Squamous Epith Cells Urine Bacteria Urine Test Salicylates Acetaminophen Ethyl Alcohol Acetone, Qual COVID-19 (JASON) COVID-19 [email or web address] 12/10/20 12/10/20 12/10/20 10:49 10:49 11:14 WBC RBC Hgb Hct MCV MCH MCHC RDW Plt Count MPV Immature Gran % (Auto) Neut % (Auto) Lymph % (Auto) [place] % (Auto) Eos % (Auto) Baso % (Auto) Lymph # (Auto) [place] # (Auto) Eos # (Auto) Baso # (Auto) Abs Immat Gran (auto) Absolute Neuts (auto) Absolute Nucleated RBC Nucleated RBC % (auto) VBG pH 7.38 VBG pCO2 24 VBG pO2 148 VBG HCO3 14 VBG O2 Saturation 99.0 VBG Base Excess -8.1 Sodium 136 Potassium 3.9 Chloride 110 H Carbon Dioxide 19 L Anion Gap 11 L BUN 9 Creatinine 0.83 Estim Creat Clear Calc 119.4 Estimated GFR > 60 POC Glucose 256 H Random Glucose 253 H Lactic Acid Calcium 8.7 Phosphorus Magnesium Total Bilirubin Direct Bilirubin AST ALT Alkaline Phosphatase Total Protein Albumin Lipase Beta HCG, Quant Urine Color Urine Appearance Urine pH Ur Specific [place] Urine Protein Urine Glucose (UA) Urine Ketones Urine Blood Urine Nitrite Ur Leukocyte Esterase Urine RBC Urine WBC Ur Squamous Epith Cells Urine Bacteria Urine Test Salicylates Acetaminophen Ethyl Alcohol Acetone, Qual COVID-19 (JASON) COVID-19 [employer] 12/10/20 12/10/20 12:23 13:49 WBC RBC Hgb Hct MCV MCH MCHC RDW Plt Count MPV Immature Gran % (Auto) Neut % (Auto) Lymph % (Auto) [place] % (Auto) Eos % (Auto) Baso % (Auto) Lymph # (Auto) [place] # (Auto) Eos # (Auto) Baso # (Auto) Abs Immat Gran (auto) Absolute Neuts (auto) Absolute Nucleated RBC Nucleated RBC % (auto) VBG pH VBG pCO2 VBG pO2 VBG HCO3 VBG O2 Saturation VBG Base Excess Sodium Potassium Chloride Carbon Dioxide Anion Gap BUN Creatinine Estim Creat Clear Calc Estimated GFR POC Glucose 206 H Random Glucose Lactic Acid Calcium Phosphorus Magnesium Total Bilirubin Direct Bilirubin AST ALT Alkaline Phosphatase Total Protein Albumin Lipase Beta HCG, Quant Urine Color Urine Appearance Urine pH Ur Specific [place] Urine Protein Urine Glucose (UA) Urine Ketones Urine Blood Urine Nitrite Ur Leukocyte Esterase Urine RBC Urine WBC Ur Squamous Epith Cells Urine Bacteria Urine Test Salicylates Acetaminophen Ethyl Alcohol Cancelled Acetone, Qual COVID-19 (JASON) COVID-19 Clin Com Progress Note: A&P Assessment and plan (1) DKA (diabetic ketoacidoses): Status: Acute Assessment and Plan: For now with serum bicarb of 19 until it increases to 02/16/2025 and could with complete resolution of anion gap we will continue until then with IV insulin and aggressive fluid and then eventually switch back to subcutaneous long-acting and short-acting coverage Time Spent With Patient Time: Total time spent is greater than 50% in coordination of care (as documented) at patient's floor/unit and/or counseling patient: Total time spent with greater than 50% in coordination of care (as documented) at patient's floor/unit and/or counseling patient:: 25
[2020-12-10 14:45] LABS: Glucose, Whole Blood 142 mg/dL (60-115)
[2020-12-10 14:45] LABS: Glucose, Whole Blood 182 mg/dL (60-115)
[2020-12-10 14:45] LABS: Glucose, Whole Blood 199 mg/dL (60-115)
[2020-12-10 16:41] LABS: Glucose, Whole Blood 145 mg/dL (60-115)
[2020-12-10 17:08] LABS: Glucose, Whole Blood 212 mg/dL (60-115)
[2020-12-10 18:09] LABS: Glucose, Whole Blood 287 mg/dL (60-115)
[2020-12-10 19:17] LABS: Glucose, Whole Blood 227 mg/dL (60-115)
[2020-12-10 20:25] LABS: Glucose, Whole Blood 232 mg/dL (60-115)
[2020-12-10 21:07] LABS: Glucose, Whole Blood 235 mg/dL (60-115)
[2020-12-10 22:22] LABS: Glucose, Whole Blood 135 mg/dL (60-115)
[2020-12-10 23:33] LABS: Glucose, Whole Blood 220 mg/dL (60-115)
[2020-12-11] VITALS (7 sets, daily range): BP systolic 117–125; BP diastolic 75–81; PULSE 86–109; RESP 15–26; TEMP 36.9–37.4; O2SAT 96; BMI 29.8
[2020-12-11 00:49] LABS: Glucose, Whole Blood 233 mg/dL (60-115)
[2020-12-11 01:08] LABS: PCO2 VBG 24 mmHg; PO2 VBG 114 mmHg; pH VBG 7.43 (7.32-7.43)
[2020-12-11 01:09] LABS: Base Excess VBG -5.9 mmol/L; HCO3 VBG 16 mmol/L
--- NOTE | 2020-12-11 01:40 | PC.NURSE ---
Patient c/o IV leaking and IV site pain around 2230. Assessed IV line, leaking significantly. IV removed. Patient visibly anxious about needing another IV. POC checked. MD made aware of loss of IV access and POC reading. Educated patient about need for new IV access for proper care. Patient agreeable for attempt. This RN at bedside, IV insertion attempt unsuccessful. Nursing supervisor order takers made aware. Agricultural Economics Teacher to bedside for IV attempt. Patient anxiety escalating. Second IV attempt unsuccessful. Patient thrashing, yelling, tearful, anxious. This RN and nursing supervisor order takers able to calm patient down. Patient states she will only allow one more attempt for IV insertion at this time. EDRN up to bedside for attempt. However, patient became verbally aggressive. Cursing, yelling and attempted to come out of room screaming at staff. Security to bedside. Provider, multiple RNs, Nursing Agricultural Economics Teacher at bedside to educate patient about need for IV access for proper treatment. Patient agitated for some time. Patient off insulin drip for about 2 hours. MD aware. POC checked multiple times, stable. Patient allowed for more IV attempts, IV places, labs drawn. IVF and Insulin drip restarted as ordered. Patient currently laying in bed resting.
[2020-12-11 01:53] LABS: Anion Gap 15 (12-20); Blood Urea Nitrogen 7 mg/dL (9-16); Calcium 8.3 mg/dL (8.4-10.2); Carbon Dioxide 17 mmol/L (22-29); Chloride 108 mmol/L (96-108); Estimated Glomerular Filt Rate > 60; Glucose Random 233 mg/dL (60-115); Potassium 3.1 mmol/L (3.3-5.1); Sodium 137 mmol/L (135-145)
[2020-12-11] MEDS: Insulin Regular/NS 100 UNIT/100 ML PLAST..BAG IVCONT (02:22)
[2020-12-11] MEDS: KCl 40 mEq in 0.9 % Sodium Chl 40 MEQ/1,000 ML IV.SOLN 125 MEQ IVCONT (02:22)
[2020-12-11 02:33] LABS: Glucose, Whole Blood 288 mg/dL (60-115)
[2020-12-11 03:19] LABS: Glucose, Whole Blood 247 mg/dL (60-115)
[2020-12-11 05:04] LABS: Glucose, Whole Blood 174 mg/dL (60-115)
[2020-12-11 05:04] LABS: Glucose, Whole Blood 109 mg/dL (60-115)
--- NOTE | 2020-12-11 06:00 | PC.NURSE ---
Addendum entered by Taylor Stuart RN 12/11/20 06:51: POC at 0630, 150- Orders to restart Insulin drip at 1 unit/hr. IV fluid change to KCL 40meq in D5% / 0.45% Sodium. Original Note: Patient POC 68 from 109, Insulin drip at 3ml/hr and turned off at this time. Patient given apple juice and pudding cup, will recheck POC at 0630.
[2020-12-11 06:04] LABS: Glucose, Whole Blood 68 mg/dL (60-115)
[2020-12-11 06:31] LABS: Glucose, Whole Blood 150 mg/dL (60-115)
[2020-12-11 07:06] LABS: HCO3 VBG 19 mmol/L; PCO2 VBG 32 mmHg; PO2 VBG 53 mmHg; pH VBG 7.39 (7.32-7.43)
[2020-12-11 07:35] LABS: Anion Gap 14 (12-20); Blood Urea Nitrogen 6 mg/dL (9-16); Calcium 8.5 mg/dL (8.4-10.2); Carbon Dioxide 22 mmol/L (22-29); Chloride 109 mmol/L (96-108); Estimated Glomerular Filt Rate > 60; Glucose Random 205 mg/dL (60-115); Potassium 3.7 mmol/L (3.3-5.1); Sodium 141 mmol/L (135-145)
[2020-12-11 08:06] LABS: Glucose, Whole Blood 229 mg/dL (60-115)
--- NOTE | 2020-12-11 08:30 | PC.NURSE ---
pt a&ox3, verbalizes wanting to go home, aware, insulin drip D/C, pt to recieve sub q lantus and humalog per sliding scale, pt ate 100% of breakfast, MD to have conversation with pt about plan of care when lab results are in, MD to encourage pt to stay for another day and be downgraded to [facility] [place], pt is adamant about leaving and going home, this RN to encourage pt to stay in facility for care, pt decided to leave AMA and verbalizes understanding of risks of leaving, pt signed paper AMA form, IV removed, pt dressed and will be taking bus home, encouraged pt to close monitor blood sugars and come back if not feeling well. Mechanical Engineering Teacher also aware.
[2020-12-11] MEDS: Insulin Glargine,Hum.rec.anlog 100 UNIT/ML 10 ML VIAL 15 UNIT SUBCUT (09:08)
[2020-12-11] MEDS: Insulin Lispro 100 UNIT/ML 3 ML VIAL SUBCUT (09:09)
--- NOTE | 2020-12-11 10:14 | P.DS_ITS ---
DS: Providers Provider Date of Service: 12/11/20 Date of admission: 12/09/20 23:57 Date of discharge: 12/11/20 Primary care physician: Maria R Chong MD Admitting clinician: Fang Carlson Attending physician on admission: Byron Roberts Attending physician on discharge: Byron Roberts Discharging clinician: Byron Roberts DS: Diagnosis Discharge Diagnosis (1) DKA (diabetic ketoacidoses): Status: Acute Problem details: Presented with diabetic ketoacidosis due to her conscious decision not to take her insulin and required aggressive IV fluids with potassium replacement as well as IV insulin and finally after nearly 36 hours restored serum bicarb to 22 with and no anion gap measured at the 14 but hyperchloremic with a negative base exce ss of approximately 4 and simply due to hyperchloremic metabolic acidosis probably in part iatrogenic possibly also due to renal tubular acidosis but expecting it to clear in all likelihood on its own She apparently was very tearful and depressed this morning she had an incident with a hospital employee felt insecure in the hospital was very emotional about being discharged and I explained that we still had that small residual degree of acidosis albeit not ketoacidosis but we wanted to restart her regimen of subcutaneous insulin short and long-acting and be sure she did not slip back into ketoacidosis but she refused to stay in the hospital and I did not want to created antagonism so I just explained the hospital standpoint in relation to good medicine practice but she apologetic Nicol said that she just has to go will not stay here under any circumstances DS: Medications Discharge Medications Home Medications: Home Medications Medication Instructions Recorded Confirmed albuterol sulfate [ProAir HFA] 2 puff PO Q4H PRN 12/10/20 12/10/20 aripiprazole lauroxil [Aristada] 2.4 ml IM Q4W 12/10/20 12/10/20 insulin lispro [Admelog SoloStar 12 unit SUBCUT QID 12/10/20 12/10/20 U-100 Insulin] sertraline 1 tab PO DAILY 12/10/20 12/10/20 sertraline 1 tab PO DAILY 12/10/20 12/10/20 DS: Summary Hospital Course Hospital Course: She was started on IV insulin and aggressive fluid therapy and then eventually of course replacement of her potassium deficit and apparently phosphorus and magnesium levels etc. never became an issue and she physically felt better in better was finally able to eat had an appetite and after nearly 36 hours her serum bicarb normalized at 22 without an anion gap which was measured at 14 electrolytes were restored and she just had a mild hyperchloremic metabolic aci dosis probably a iatrogenic from initial saline infusion and may be secondarily a residual renal tubular acidosis all of which should self repair When explained that we needed 24 hours to be sure she did not slip back into DKA while on subcutaneous insulin replacement and off the IV insulin and she refused to stay stating a few of her reasons but apparently she was in a depressed mood and tearful today and she said in the meta what I say she really wanted to go home and said that she has all of her psych meds late out by her psychiatrist who she apparently is going to rejoin shortly and she says she has all of her insulin at home and per her cardiac cath lab radiology technologist and she did want have any advice from anybody else but her own physicians Status at Discharge Cognitive/behavioral status at discharge: Cognitive function was okay she was oriented and she was capable of making decisions and she made a conscious decision to leave against medical advice Functional status at discharge: independent ambulation Overall status at discharge: patient is progressing back to baseline Time Spent with Patient Time attestation: Total time spent providing and/or coordinating discharge services: Discharge coordination time: Less than 30 minutes Specific discharge activities: I spoke to her 1st about convincing her to stay in the hospital to reestablish a dose of subcutaneous coverage as well as making sure that she did not slip back into diabetic ketoacidosis explained the medical necessity and the importance of course of never missing doses and then the nurse subsequently back that up with her conversation explain to her the need to call if she did not feel well because it could represent a resumption of ketoacidosis and we both explained that it is of potentially life-threatening issue Quality: Stroke Onset of Symptoms Date: 12/09/20 Quality: VTE Contraindication No VTE Prophylaxis: Drug treatment not indicated Contraindication No Overlap Therapy: Procedure not indicated Physical Exam Vital Signs: Vital Signs: Last Vital Signs Temp 99.3 F 12/11/20 08:00 Pulse 107 H 12/11/20 08:00 Resp 26 H 12/11/20 08:00 BP 120/76 12/11/20 08:00 Pulse Ox 96 12/11/20 07:00 Body Mass Index 29.8 Awake and alert with good cognitive function but clearly depressed and tearful Neurologic is nonfocal including cranial nerves Skin intact with no wounds no acrocyanosis Cardiac with normal S1 normal S2 with no gallops no neck vein distension No peripheral edema Abdomen benign with normal bowel sounds no organomegaly Chest clear with no adventitious sounds DS: Data Data Completed and Pending Labs on day of discharge: Laboratory Results - last 24 hr 12/10/20 12/10/20 12/10/20 10:49 10:49 11:14 VBG pH 7.38 VBG pCO2 24 VBG pO2 148 VBG HCO3 14 VBG O2 Saturation 99.0 VBG Base Excess -8.1 Sodium 136 Potassium 3.9 Chloride 110 H Carbon Dioxide 19 L Anion Gap 11 L BUN 9 Creatinine 0.83 Estim Creat Clear Calc 119.4 Estimated GFR > 60 POC Glucose 256 H Random Glucose 253 H Calcium 8.7 12/10/20 12/10/20 12/10/20 12:23 12:56 13:53 VBG pH VBG pCO2 VBG pO2 VBG HCO3 VBG O2 Saturation VBG Base Excess Sodium Potassium Chloride Carbon Dioxide Anion Gap BUN Creatinine Estim Creat Clear Calc Estimated GFR POC Glucose 206 H 199 H 182 H Random Glucose Calcium 12/10/20 12/10/20 12/10/20 14:41 15:57 17:01 VBG pH VBG pCO2 VBG pO2 VBG HCO3 VBG O2 Saturation VBG Base Excess Sodium Potassium Chloride Carbon Dioxide Anion Gap BUN Creatinine Estim Creat Clear Calc Estimated GFR POC Glucose 142 H 145 H 212 H Random Glucose Calcium 12/10/20 12/10/20 12/10/20 18:07 19:12 20:12 VBG pH VBG pCO2 VBG pO2 VBG HCO3 VBG O2 Saturation VBG Base Excess Sodium Potassium Chloride Carbon Dioxide Anion Gap BUN Creatinine Estim Creat Clear Calc Estimated GFR POC Glucose 287 H 227 H 232 H Random Glucose Calcium 12/10/20 12/10/20 12/10/20 21:03 22:18 23:28 VBG pH VBG pCO2 VBG pO2 VBG HCO3 VBG O2 Saturation VBG Base Excess Sodium Potassium Chloride Carbon Dioxide Anion Gap BUN Creatinine Estim Creat Clear Calc Estimated GFR POC Glucose 235 H 135 H 220 H Random Glucose Calcium 12/11/20 12/11/20 12/11/20 00:36 00:55 00:55 VBG pH 7.43 VBG pCO2 24 VBG pO2 114 VBG HCO3 16 VBG O2 Saturation 99.0 VBG Base Excess -5.9 Sodium 137 Potassium 3.1 L D Chloride 108 Carbon Dioxide 17 L Anion Gap 15 BUN 7 L Creatinine 0.64 Estim Creat Clear Calc 155.0 Estimated GFR > 60 POC Glucose 233 H Random Glucose 233 H Calcium 8.3 L 12/11/20 12/11/20 12/11/20 02:28 03:15 04:02 VBG pH VBG pCO2 VBG pO2 VBG HCO3 VBG O2 Saturation VBG Base Excess Sodium Potassium Chloride Carbon Dioxide Anion Gap BUN Creatinine Estim Creat Clear Calc Estimated GFR POC Glucose 288 H 247 H 174 H Random Glucose Calcium 12/11/20 12/11/20 12/11/20 04:55 05:57 06:28 VBG pH VBG pCO2 VBG pO2 VBG HCO3 VBG O2 Saturation VBG Base Excess Sodium Potassium Chloride Carbon Dioxide Anion Gap BUN Creatinine Estim Creat Clear Calc Estimated GFR POC Glucose 109 68 150 H Random Glucose Calcium 12/11/20 12/11/20 12/11/20 06:53 06:53 07:29 VBG pH 7.39 VBG pCO2 32 VBG pO2 53 VBG HCO3 19 VBG O2 Saturation 86.0 VBG Base Excess -4.0 Sodium 141 Potassium 3.7 Chloride 109 H Carbon Dioxide 22 Anion Gap 14 BUN 6 L Creatinine 0.59 Estim Creat Clear Calc 168.0 Estimated GFR > 60 POC Glucose 229 H Random Glucose 205 H Calcium 8.5 Discharge Plan Discharge Anticipated Discharge Date/Time: 12/11/20 10:27 Patient Disposition: Left Against Medical Advice Referrals: Maria R Chong MD [Primary Care Provider] - 1 Week (Nurse will call you with follow up appointment.) Discharge Medications: No Action sertraline 100 mg tablet 1 tab PO DAILY RF: 0 albuterol sulfate [ProAir HFA] 90 mcg/actuation HFA aerosol inhaler 2 puff PO Q4H PRN (Reason: wheezing) RF: 0 sertraline 50 mg tablet 1 tab PO DAILY RF: 0 insulin lispro [Admelog SoloStar U-100 Insulin] 100 unit/mL insulin pen 12 unit subcut QID RF: 0 Aristada 662 mg/2.4 mL suspension,extended rel syring 2.4 ml IM Q4W RF: 0 Discharge Orders: Discharge Order (Routine); Ordered 12/11/20 Ordered By: Byron Roberts Diet: diabetic diet Activity on Discharge: As tolerated Care Plan Goals: By both I and the nurse caring for her reiterated absolute necessity for never missing and insulin dose and for monitoring herself and communicating with her cardiac cath lab radiology technologist and primary care physician as well as follow-up with Psychiatry about her medications for bipolar disorder Health Concerns: Health concerns today are in regard to possible resumption of ketoacidosis off the IV insulin but she did not want to stay for observation and she hopefully will call if not feeling well Plan of Treatment: Plan of treatment is resumption of mealtime and bedtime short-acting insulin coverage as well as Lantus long-acting insulin twice daily per her cardiac cath lab radiology technologist
--- NOTE | 2020-12-11 10:40 | MHC.CM.PN ---
Patient was in ICU this morning. Left AMA. refinery operator assistant attempted to obtain a PCP appointment for patient.
== END 2020-12-11 09:30 | disposition left against medical advice (07) | DRG 420 ==
LOC: HO.ED 15:17 → HO.ICU 12-10 00:06
PROVIDERS: Physician Assistant; Physician Assistant Medical; Admitting Provider Physician Assistant; Emergency Provider Emergency Medicine Emergency Medical Services; PCP Internal Medicine; Visit Provider Internal Medicine Cardiovascular Disease
DX: E10.10 Type 1 diabetes mellitus with ketoacidosis without coma (principal); N25.89 Other disorders resulting from impaired renal tubular function; F32.9 Major depressive disorder, single episode, unspecified; F43.10 Post-traumatic stress disorder, unspecified; E87.6 Hypokalemia; Z20.822 Contact with and (suspected) exposure to COVID-19; Z79.899 Other long term (current) drug therapy
CPT/HCPCS: 36415; 80048; 80053; 80076; 80320; 81001; 81025; 82009; 82310; 82803; 82947; 83605; 83690; 83735; 84100; 84702; 85025; 87635; 96361; 96365; 96375; 99284; 99285; G0480; J1200; J2405; J2765